=== PATIENT | male | born 1935 | race Caucasian/White ===

== ENCOUNTER 2023-01-06 12:56 | Inpatient (IN) | payer OTHER ==
[~2023-01-06] VITALS: Ht 167.6 cm; Wt 75.0 kg
[2023-01-06] MEDS ORDERED: ASPirin 81 mg TAB PO ONE (13:30)
[2023-01-06] MEDS ORDERED: dilTIAZem 25 MG/5 ML VIAL IV ONE (13:30)
[2023-01-06 13:43] LABS: Basophils # (auto) 0 10 ^3/uL (0-0.2); Basophils % (auto) 0.3 % (0.0-2.0); Eosinophils # (auto) 0.1 10 ^3/uL (0-0.8); Eosinophils % (auto) 0.5 % (0.0-7.0); Hematocrit 39.9 % (41.0-53.0); Hemoglobin 13.3 g/dL (13.5-17.5); Lymphocytes # (auto) 0.5 10 ^3/uL (0.4-5.4); Lymphocytes % (auto) 5.3 % (10.0-50.0); Mean Corpuscular Hemoglobin 30.7 pg (28.0-32.0); Mean Corpuscular Hgb Conc. 33.3 g/dL (32.0-36.0); Mean Corpuscular Volume 92.1 fL (80.0-100.0); Monocytes # (auto) 0.8 10 ^3/uL (0-1.3); Monocytes % (auto) 8.4 % (0.0-12.0); Neutrophils # (auto) 8.6 10 ^3/uL (1.6-8.6); Neutrophils % (auto) 85.5 % (37.0-80.0); Red Blood Cells 4.33 10^6/uL (4.5-5.90); Red Cell Distribution Width 13.9 % (11.8-14.3); White Blood Cell 10.1 10^3/uL (4.4-10.8)
[2023-01-06 13:54] LABS: Albumin 3.3 g/dL (3.4-5.0); Calcium 8.2 mg/dL (8.5-10.1); Magnesium 2.3 mg/dL (1.6-2.6); Potassium 4.3 mmol/L (3.5-5.1)
[2023-01-06 13:59] LABS: BUN/Creatinine Ratio 23.5 (10.0-20.0); Bilirubin, Total 1.6 mg/dL (0.2-1.0); Total Protein 6.3 g/dL (6.4-8.2)
[2023-01-06 14:00] LABS: INR 1.11 (0.9-1.15)
[2023-01-06] MEDS ORDERED: ATENOLOL 25 MG TAB PO ONE (15:45)
[2023-01-06] MEDS ORDERED: HEPARIN SODIUM (PORCINE) 5000 UNITS/ML 1ML VIAL IV ONE (15:45)
[2023-01-06] MEDS ORDERED: MIDAZOLAM HCL 2MG/2ML 2ml VIAL (1mg/ml) IV ONE (15:45)
[2023-01-06] MEDS ORDERED: LABETALOL HCL 5 MG/ML 4ML SYRINGE IV ONE (15:45)
[2023-01-06] MEDS ORDERED: SODIUM CHLORIDE 0.9% 500 ML IV ONE (16:30)
[2023-01-06] MEDS ORDERED: SODIUM CHLORIDE 0.9% 1,000 ML IV ONE ×2 (16:30→17:30)
[2023-01-06] MEDS: SODIUM CHLORIDE 0.9% 1,000 ML IV SCH (17:15)
[2023-01-06] MEDS: MAGNESIUM SULFATE 1GM/100ML 100 ML IV SCH ×2 (17:30→18:21)
[2023-01-06] MEDS ORDERED: ALBUMIN 25% 100 ML IV ONE (17:30)
[2023-01-06 18:16] LABS: Cholesterol 127 mg/dL (< 200); HDL Cholesterol 57 mg/dL (40-59); LDL Cholesterol 69 mg/dL (< 100); Triglycerides 71 mg/dL (< 150)
[2023-01-06] MEDS ORDERED: HYDROcodone-ACET 5/325MG TAB PO PRN (19:00)
[2023-01-06] MEDS ORDERED: MORPHINE SULFATE INJ 2 MG/ml SYRG IV PRN (19:00)
[2023-01-06] MEDS ORDERED: NITROGLYCERIN 0.4 MG SL TAB SL PRN (19:00)
[2023-01-06] MEDS ORDERED: ACETAMINOPHEN 325 MG TAB PO PRN (19:00)
[2023-01-06] MEDS ORDERED: DOCUSATE SOD 100 MG CAP PO PRN (19:00)
[2023-01-06] MEDS: SODIUM CHLOR 0.9% PF (SALINE LOCK) 10ML VIAL/SYR IV SCH (22:00)
[2023-01-06] MEDS ORDERED: ENOXAPARIN SOD 40 MG/0.4 ML SYRINGE SC ONE (22:00)
[2023-01-07] MEDS: SODIUM CHLOR 0.9% PF (SALINE LOCK) 10ML VIAL/SYR IV SCH ×3 (06:14→21:47)
[2023-01-07] MEDS ORDERED: HEPARIN SODIUM (PORCINE) 5000 UNITS/ML 1ML VIAL IV ONE (06:15)
[2023-01-07] MEDS: SODIUM CHLORIDE 0.9% 1,000 ML IV SCH ×2 (06:37→18:01)
[2023-01-07 06:56] LABS: Albumin 2.9 g/dL (3.4-5.0); Calcium 7.8 mg/dL (8.5-10.1)
[2023-01-07 06:58] LABS: Basophils # (auto) 0 10 ^3/uL (0-0.2); Basophils % (auto) 0.7 % (0.0-2.0); Eosinophils # (auto) 0.1 10 ^3/uL (0-0.8); Eosinophils % (auto) 2.6 % (0.0-7.0); Hematocrit 35.5 % (41.0-53.0); Hemoglobin 12.2 g/dL (13.5-17.5); Lymphocytes # (auto) 0.7 10 ^3/uL (0.4-5.4); Lymphocytes % (auto) 15.2 % (10.0-50.0); Mean Corpuscular Hemoglobin 31.6 pg (28.0-32.0); Mean Corpuscular Hgb Conc. 34.3 g/dL (32.0-36.0); Mean Corpuscular Volume 92.1 fL (80.0-100.0); Monocytes # (auto) 0.4 10 ^3/uL (0-1.3); Neutrophils # (auto) 3.6 10 ^3/uL (1.6-8.6); Neutrophils % (auto) 72.5 % (37.0-80.0); Red Blood Cells 3.86 10^6/uL (4.5-5.90); Red Cell Distribution Width 14.4 % (11.8-14.3); White Blood Cell 4.9 10^3/uL (4.4-10.8)
[2023-01-07 06:59] LABS: Bilirubin, Total 1.4 mg/dL (0.2-1.0)
[2023-01-07 07:09] LABS: Urine Bacteria MOD /hpf (None Seen); Urine Blood Negative /uL (Negative); Urine Mucus FEW (None Seen); Urine Specific Gravity 1.018 (1.001-1.035); Urine WBC 24 /hpf (0 - 3)
[2023-01-07] MEDS ORDERED: HEPARIN SODIUM (PORCINE) 5000 UNITS/ML 1ML VIAL SC SCH (10:00)
[2023-01-07] MEDS ORDERED: ENOXAPARIN SOD 80 MG/0.8ML SYRINGE SC SCH (10:40)
[2023-01-07] MEDS ORDERED: METOPROLOL TARTRATE 50 MG TAB PO SCH (10:45)
[2023-01-07] MEDS ORDERED: cefTRIAXone 1GM/50ML D5W 50 ML IV ONE (17:00)
[2023-01-07 21:48] VITALS: BP 139/77
[2023-01-07] MEDS ORDERED: ATORVASTATIN 20 MG TAB PO SCH (22:00)
[2023-01-08] MEDS ORDERED: ASPirin 81 mg TAB PO SCH (10:00)
== END 2023-01-07 21:45 | disposition short-term general hospital (02) | DRG 282 ==
LOC: EDBD 12:56 → ER 12:56 → TELE 19:02
PROVIDERS: ADMIT Nurse Practitioner Family; ATTEND Internal Medicine
PROC: 5A2204Z Restoration of Cardiac Rhythm, Single (ICD-10-PCS; principal; 2023-01-06)
DX: I48.20 Chronic atrial fibrillation, unspecified (principal); I21.A1 Myocardial infarction type 2; E78.5 Hyperlipidemia, unspecified; I10 Essential (primary) hypertension; Z68.26 Body mass index [BMI] 26.0-26.9, adult; I95.9 Hypotension, unspecified; Z86.73 Personal history of transient ischemic attack (TIA), and cerebral infarction without residual deficits
CPT/HCPCS: 36415; 71045; 80053; 80061; 81001; 83036; 83735; 83880; 84443; 84484; 85025; 85379; 85610; 85730; 87086; 93005; 93306; 96361; 96365; 96375; 99291; G0378; J0696; J2250; P9047